=== PATIENT | female | born 1950 | race Caucasian/White ===

== ENCOUNTER 2017-01-11 09:42 | Emergency (ER) | payer BC ==
[~2017-01-11] VITALS: Ht 157.5 cm; Wt 66.5 kg
[2017-01-11 09:45] VITALS: BP 145/84
== END 2017-01-11 11:57 | disposition home or self-care (01) ==
LOC: ED 11:30
DX: S80.01XA Contusion of right knee, initial encounter (principal); M17.11 Unilateral primary osteoarthritis, right knee; W01.0XXA Fall on same level from slipping, tripping and stumbling without subsequent striking against object, initial encounter; Y93.89 Activity, other specified; Y92.098 Other place in other non-institutional residence as the place of occurrence of the external cause; Y99.8 Other external cause status
CPT/HCPCS: 99284